=== PATIENT | female | born 1950 | race Caucasian/White ===

== ENCOUNTER 2019-02-22 12:11 | Day surgery (SDC) | payer MEDICARE, SELFPAY ==
[2019-02-22] VITALS (9 sets, daily range): BP systolic 136–165; BP diastolic 83–100; PULSE 74–95; RESP 12–16; TEMP 36.3–37.2; O2SAT 94–98; BMI 28.8
--- NOTE | 2019-02-22 | PATH_ITS ---
[facility] Accession Number: [id number] . 01 Material submitted: . gallbladder - GALLBLADDER . 02 Diagnosis: Gallbladder, Cholecystectomy: Mild chronic cholecystitis. One benign lymph node. No evidence of neoplasm. MRV 02/28/2019 1317 Local . 02 Electronically signed: . Brock Farris MD, PhD, Pathologist NPI- [id number] . 01 Gross description: . Received in formalin, labeled gallbladder, is an intact gallbladder (length-6.5 cm, diameter-2.0 cm) with blue-green smooth shiny serosa and a patent cystic duct. An apparent cluster of lymph nodes (1.0 x 0.8 x 0.3 cm) is identified. The lumen contains green tacky bile. No calculi are identified. The mucosa is dark green smooth and flat. The wall is up to 0.1 cm thick. No nodules, masses or lesions are identified. Section code: (A1) cystic duct resection margin and two serial sections from the body; (A2) two longitudinal sections from the fundus; (A3) multiple intact lymph nodes. ([id number]) ([id number]) /[facility] 02/27/2019 1529 Local . 02 Pathologist provided ICD-10: K80.50, K81.1 . 02 CPT . 813079 Performed at: 01 [facility] [address] [place] [address], [place], [place] [id number] MD Brian Antonio MD Phone: [phone] Performed at: 02 [facility] [address] [place], [place] [id number] MD Kaylee Oakley MD Phone: [phone]
[2019-02-22] MEDS: LACTATED RINGERS 1,000 ML 100 ML IV (13:31)
--- NOTE | 2019-02-22 13:56 | PM.PREOP ---
Pre-operative Note Interval Note History & Physical reviewed/Exam performed by Physician: Yes Changes to H&P: No
[2019-02-22] MEDS: CEFAZOLIN 2 GM/100 ML FROZ.PIGGY IV (14:15)
--- NOTE | 2019-02-22 14:35 | SUR.OPER ---
Supine on padded OR bed, head on pillow, safety belt at thigh, Bilateral arms secured on padded arm oard <90 degrees abduction. Legs uncrossed. Padded footboard in place. Tape over blanket to secure lower legs.
[2019-02-22] MEDS: BUPIVACAINE 0.25% (PF) VIAL 30 ML INJ (14:48)
--- NOTE | 2019-02-22 15:27 | PM.OP.1 ---
Operative Date/Time/Diagnoses Date of procedure: 02/22/19 Time of procedure: 15:27 Pre-op diagnosis: functional gallbladder disorder Post-op diagnosis: same Procedure & Clinicians Procedure: Laparoscopic cholecystectomy Same procedure as scheduled: Yes Indications: 68-year-old female with functional gallbladder disorder presents for elective cholecystectomy. Please refer to the H&P for further detail. Surgeon: Raghavendra Benavidez Click Yes if Unassisted: Yes Anesthesia Type: General Operative Notes Findings: Chronic cholecystitis Specimen(s): other (Gallbladder) Estimated Blood Loss (mL): 10 Procedure in detail: The patient was brought to the operating room placed supine on the table. Bilateral lower extremity compression devices were applied. General anesthesia was induced and they were intubated with an endotracheal tube. They received 3.75 g of Zosyn prior to skin incision. A time-out was performed to ensure the correct patient procedure necessary equipment within the operating room. They were then prepped and draped in the usual sterile fashion. Infraumbilical incision was made the umbilical stalk was grasped and elevated and the fascia was sharply incised. The abdomen was entered atraumatically. A 10 mm trocar was then placed into the abdomen. Pneumoperitoneum was established. The laparoscopic camera was inserted into the abdomen inspection was made that demonstrated no evidence of injury upon entry. We then placed our working ports the 1st 5 mm port high in the epigastrium and then 2 in the right upper quadrant. The gallbladder was grasped and retracted over the liver and grasped laterally by the fundus. There was evidence of chronic cholecystitis. The triangle of Calot was exposed. The triangle of calot was then skeletonized using hook electrocautery and demonstrated the cystic duct clearly entering the gallbladder the cystic artery and the liver and in the background. With the critical view of safety established the cystic duct was clipped twice proximally and once distally and then sharply divided and the cystic artery was taken in the same fashion. Next the gallbladder was removed from the liver bed using electro cautery. The liver bed was then inspected for hemostasis and this was achieved. The abdomen was irrigated with sterile saline and inspection was made that showed the clips in good position. The specimen was removed using Endo-Catch. The abdomen was desufflated. The the fascia of the umbilicus was closed with 0 Vicryl in a [id number] fashion. Skin incisions were irrigated and closed with 4-0 Monocryl. The wounds were sealed with Dermabond. Patient emerged from general anesthesia was extubated and transferred to the postoperative care unit missed stable condition. The sponge and instrument count at the end of the operation was correct. Complications: none Post-operative Condition: stable Disposition: same day surgery
[2019-02-22] MEDS: OXYCODONE/ACETAMINOPHEN 5/325 TABLET 1 TAB PO (15:55)
== END 2019-02-22 16:12 | disposition home or self-care (01) ==
PROVIDERS: Family Provider Internal Medicine; PCP Internal Medicine; Visit Provider Surgery
PROC: 0FT44ZZ Resection of Gallbladder, Percutaneous Endoscopic Approach (ICD-10-PCS; CPT 47562; principal; 2019-02-22 13:45)
DX: K81.1 Chronic cholecystitis (principal)
CPT/HCPCS: 47562; J0690; J1100; J2250; J2405; J2704; J3010